=== PATIENT | male | born 1975 | race Caucasian/White ===

== ENCOUNTER → 2018-03-24 | Outpatient (CLI) | payer OTHER ==
[2018-03-24] MEDS: IOHEXOL 300 MG/ML 100ML VIAL. IV (12:13)
[2018-03-24] MEDS: IOHEXOL 240 MG/ML 50ML VIAL. PO (12:13)
== END | disposition home or self-care (01) ==
LOC: KCIC CT 10:42
DX: R10.32 Left lower quadrant pain (principal)
CPT/HCPCS: 74177; Q9966; Q9967